=== PATIENT | male | born 1970 | race Caucasian/White ===

== ENCOUNTER 2016-08-12 04:05 | Inpatient (IN) | payer BC, MEDICARE ==
[2016-08-10 13:24] LABS: HEMOGLOBIN 13.2 g/dL (13.6-17.8)
[2016-08-10 13:25] LABS: HEMATOCRIT 39.7 % (40.0-51.0)
[2016-08-10 13:47] LABS: BUN (BLOOD UREA NITROGEN) 11 MG/DL (6-23); CALCIUM, SERUM 8.9 MG/DL (8.5-10.4); CHLORIDE, SERUM 104 MMOL/L (96-112); CO2 (CARBON DIOXIDE) 25 MMOL/L (24-34); CREATININE 1.32 MG/DL (0.70-1.30); GFR AFRICAN AMERICAN 75 ML/MIN (>=60); GFR NON AFRICAN AMERICAN 65 ML/MIN (>=60); GLUCOSE, SERUM 94 MG/DL (60-99); POTASSIUM, SERUM 3.1 MMOL/L (3.5-5.3); SODIUM, SERUM 138 MMOL/L (135-148)
--- NOTE | ~2016-08-12 | DS ---
Discharge Summary [facility] [address] [place]. [address] NAME: CHRISTINA BERTRAND : 72 STATUS : DIS IN PAT#: [id number] AGE: 46 ADM/REG DATE : 08/12/16 MR#: [id number] REPORT SERV DATE: 09/01/16 DICTATED BY: YANG COLLIER II DATE: 08/31/16 REPORT STATUS : Draft TRANSCRIBED BY: DIANA DATE: 08/31/16 Data Collection from hospitalization DISCHARGE DIAGNOSES: 1. 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 2. L4 pars fracture. 3. Right lower extremity radiculopathy. 4. Hypertension. 5. Tobacco use. 6. History of myocardial infarction. 7. Asthma. 8. Chronic pain. 9. Gastroesophageal reflux disease. 10.Peripheral vascular disease. 11.Rheumatoid arthritis. 12.Decreased kidney function. CONSULTATIONS: Wili Hardy M.D. PROCEDURES PERFORMED: 1. Anterior exposure of the lumbar spine on 08/12/2016. 2. Stage I (anterior); L4-L5 anterior interbody arthrodesis, application of prosthetic device at L4-L5, anterior instrumentation at L4-L5. Stage II (posterior); posterolateral arthrodesis at L4-L5, posterior nonsegmental instrumentation at L4-5, use of allograft substitute and bone morphogenic protein, use of stereotactic spinal imaging on 08/12/2016. PATHOLOGY: Lumbar spine repair - predominantly fragmented cartilage, no evidence was seen of an infectious or neoplastic process. MEDICATIONS: ProAir two puffs via inhaler every four hours as needed, Celexa 20 mg daily, Valium 5 mg every six hours as needed, Enbrel 50 mg subcutaneously weekly as instructed, Duragesic one patch topically every 72 hours, folic acid 1 mg daily, Neurontin 1600 mg twice a day, methotrexate three tablets weekly as instructed, Singulair 10 mg daily, MS Contin 30 mg every eight hours, Roxicodone 15 mg every four hours as needed, Protonix 40 mg daily, Klor-Con 20 mEq daily, Phenergan 12.5 mg every six hours as needed, Seroquel 75 mg at bedtime, Topamax 200 mg twice a day, and Desyrel 50 mg at bedtime. CONDITION AT DISCHARGE: Stable. DISPOSITION: The patient was discharged home on a regular diet with activities as instructed. He would follow up with me on 09/06/2016. HOSPITAL COURSE: This is a 46-year-old man who had been complaining of cervical-related symptoms. The symptoms are located in the lower back and he also complained of numbness and tingling in his feet. The patient said that he fell down a flight of steps two months prior to this admission. He was last seen in the office eight months prior to this admission. He had reported having dysphagia since his fall. He had been eating, but said "it feels tight Discharge Summary [facility] [address] [facility] [place]. [address] NAME: CHRISTINA BERTRAND : 72 STATUS : DIS IN PAT#: [id number] AGE: 46 ADM/REG DATE : 08/12/16 MR#: [id number] REPORT SERV DATE: 09/01/16 DICTATED BY: YANG COLLIER II DATE: 08/31/16 REPORT STATUS : Draft TRANSCRIBED BY: DIANA DATE: 08/31/16 and things stick." He had not been evaluated by his primary care physician or an emergency department. He described the severity of his symptoms as a 5 on a scale of 0-10. 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 He has right lower extremity radiculopathy. Treatment options were discussed and it was elected to proceed with surgical intervention. He was admitted to the hospital at this time for further evaluation and treatment. Upon admission, he was taken to the operating room where he underwent the above-mentioned procedure by myself and Dr. Wili Hardy. He tolerated this well, and there were no complications. On postop day #1, he was evaluated by Physical Therapy. He was passing flatus. His abdomen was benign. We advanced his diet. Respirations were nonlabored. We encouraged him to mobilize. On postop day #2, he continued to complain of the expected amount of abdominal pain postoperatively. He continued to progress. Discharge planning was performed. We encouraged him to mobilize. On 08/17/2016, he did have a bowel movement. He had persistent nausea. The patient said this had been an issue for several months. He was seeing GI as an outpatient. Discharge instructions were given. Due to his improved and stable condition, he was discharged home with the above-stated instructions. Information collected by: Krys Zapata I submit the above information as my discharge summary. SHAWN/DIANA Yang Collier II, M.D. / [id number] CC: Mk Allen II, M.D.
--- NOTE | ~2016-08-12 | OP ---
Record Of Operation [facility] [address] [place]. [address] NAME: ELZA,CHRISTINA OCONNOR : 72 STATUS : ADM IN [facility]#: [id number] AGE: 46 ADM/REG DATE : 08/12/16 MR#: [id number] REPORT SERV DATE: 08/13/16 DICTATED BY: YANG COLLIER II DATE: 08/13/16 REPORT STATUS : Draft TRANSCRIBED BY: MODL DATE: 08/13/16 DATE OF PROCEDURE: 08/12/2016 PREOPERATIVE DIAGNOSES: 1. 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 2. L4 pars fracture. 3. Right lower extremity radiculopathy. POSTOPERATIVE DIAGNOSES: 1. 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 2. L4 pars fracture. 3. Right lower extremity radiculopathy. PROCEDURES: Stage I (anterior). 1. L4-L5 anterior interbody arthrodesis. 2. Application of prosthetic device L4-L5. 3. Anterior instrumentation L4-L5. Stage II (posterior). 1. Posterolateral arthrodesis L4-L5. 2. Posterior nonsegmental instrumentation, L4-5. 3. Use of allograft substitute and bone morphogenic protein. 4. Use of stereotactic spinal imaging. SURGEON: Dr. Yang Collier (Dr. Hardy was the co-surgeon for the anterior stage I interbody arthrodesis). IV FLUIDS: 1800 mL LR. ESTIMATED BLOOD LOSS: 50 mL. DRAINS: No drains. COMPLICATIONS: No complications. ANTIBIOTIC: Preoperatively. IMPLANTS: Anterior, Globus; Alphatec, posterior. PREOPERATIVE HISTORY: This is a very friendly 46-year-old gentleman who has a complicated medical history including cardiac disease, but also has had a recurrence of back pain and leg pain. He has had a history of two laminectomies in the past. He now has facet instability. He also has a pars fracture on the right. This area appears to be hypermobile. He does have some instability seen on the lateral flexion-extension films, but no extreme spondylolisthesis is noted. However, it appears that the facet is essentially absent and not functioning normally especially on the right given the fracture. Record Of Operation [facility] [address] [place]. [address] NAME: ELZACHRISTINA : 72 STATUS : ADM IN PAT#: [id number] AGE: 46 ADM/REG DATE : 08/12/16 MR#: [id number] REPORT SERV DATE: 08/13/16 DICTATED BY: YANG COLLIER II DATE: 08/13/16 REPORT STATUS : Draft TRANSCRIBED BY: MODL DATE: 08/13/16 We discussed the risks and benefits. He does have a history of infection (urosepsis). We discussed the risk of infection with this particular surgery as well. We discussed the other risks and he wished to proceed. DESCRIPTION OF PROCEDURE: After informed consent was obtained, the patient was brought to the operating room at his request and general anesthesia achieved. He was placed in supine position. The abdomen was prepped and draped in a sterile fashion. Dr. Hardy performed anterior retroperitoneal exposure. Under loupe magnification and a head lamp, I did remove disk with the knife followed by use of the pituitary rongeurs, Kerrison rongeurs, and curettes for the diskectomy. Overall, the L4-L5 vertebral bodies were very unstable there was obvious abnormal macro motion noted at the disk level. The Perez elevator was able to abnormally cause migration in the vertebral bodies. The endplates were now prepared with the curettes and the high-speed bur. The punctate bleeding bone was identified on both endplates. The prosthetic device was then trialed and chosen and placed at L4-L5. This contained allograft substitute and bone morphogenic protein. The prosthetic device was well placed. Next, the anterior instrumentation was applied. This was a separate plate and screw construct. Two screws were placed into L4 and L5. Multiplanar imaging confirmed acceptable placement of the implants. The standard closure was now performed and standard dressings were applied, and the patient was turned to the prone position. The back was prepped and draped in a sterile fashion. The stereotactic spinal pin was placed into the left iliac crest followed by completion of the intraoperative CT scan. Stereotactic guidance was then used throughout the case. At this point, the minimally invasive incision was performed on the right. The stereotactic guidance was then used to place the pedicle screws into L4 and L5. A repeat CT scan confirmed acceptable placement of the implants followed by placement of the malathi. Final tightening was performed. At this point, the retractor was placed along with the Perez elevator. We were able to decorticate the transverse process of L4 and L5. The allograft substitute and bone morphogenic protein were then placed along the gutter. Standard closure was performed, and the patient was extubated and transferred to PACU in stable condition. TRISTEN/DIANA Yang Collier II, M.D. / [id number] CC: Record Of Operation [address] [address] NAME: CHRISTINA BERTRAND : 72 STATUS : ADM IN [facility]#: [id number] AGE: 46 ADM/REG DATE : 08/12/16 MR#: [id number] REPORT SERV DATE: 08/13/16 DICTATED BY: YANG COLLIER II DATE: 08/13/16 REPORT STATUS : Draft TRANSCRIBED BY: DIANA DATE: 08/13/16 Mk Allen II, M.D.
--- NOTE | ~2016-08-12 | OP ---
Record Of Operation [facility] [address] [place]. [address] NAME: CHRISTINA BERTRAND : 72 STATUS : ADM IN PAT#: [id number] AGE: 46 ADM/REG DATE : 08/12/16 MR#: [id number] REPORT SERV DATE: 08/12/16 DICTATED BY: WILI BUTLER II DATE: 08/12/16 REPORT STATUS : Draft TRANSCRIBED BY: MODL DATE: 08/12/16 DATE OF PROCEDURE: 08/12/2016 ATTENDING CO-SURGEON: Wili Butler M.D. SECOND ATTENDING CO-SURGEON: Long Collier M.D. PREOPERATIVE DIAGNOSIS: Severe degenerative disk disease, L4-L5. POSTOPERATIVE DIAGNOSIS: Severe degenerative disk disease, L4-L5. PROCEDURES: 1. Anterior exposure of the lumbar spine. 2. Anterior lumbar interbody fusion with instrumentation at L4-L5. ANESTHESIA: General. ESTIMATED BLOOD LOSS: 25 mL for my portion of the case. Please note, I am the co-surgeon of the case. I am dictating a portion of the case. The remaining portion is found in a note by Dr. Collier. DESCRIPTION OF PROCEDURE: The patient was taken to the operating room and placed in a supine position on the table. General anesthesia was achieved. Protective padding and a lumbar roll was placed. We then prepped and draped in a sterile fashion. I made an incision to the left of the umbilicus directly over L4-L5. The rectus sheath on the left side was then opened along the length of the incision and the rectus muscle was retracted laterally. We entered the preperitoneal space and bluntly dissected into the retroperitoneal space and swept the peritoneum, the ureter, and abdominal contents to the right to expose the aorta and iliac vessels. The segmental vessels at L4 and L5 were then identified and ligated with 2-0 silk suture. With continued dissection, we completely immobilized the vessels and exposed L4-L5 and marked this with fluoroscopy. A diskectomy with graft replacement and instrumentation was performed. Please see Dr. Collier's notes for details of this. Once x-ray confirmed adequate placement, we inspected the retroperitoneum. It was hemostatic. The ureter was intact. We removed the retractors and allowed the abdominal contents to return to their normal anatomic position. We then closed using interrupted Vicryl in a running PDS. We closed the skin with Monocryl. At the end of the procedure, the patient was stable. He had tolerated it well. He was transported to the recovery room in good condition. SAQIB/DIANA Wili Record Of Operation [address] [address] NAME: CHRISTINA BERTRAND : 72 STATUS : ADM IN PAT#: [id number] AGE: 46 ADM/REG DATE : 08/12/16 MR#: [id number] REPORT SERV DATE: 08/12/16 DICTATED BY: WILI BUTLER II DATE: 08/12/16 REPORT STATUS : Draft TRANSCRIBED BY: DIANA DATE: 08/12/16 Antony SALMON M.D. / [id number] CC: Long Collier II, M.D.
[~2016-08-12 04:05] MED LIST: ADVIL PO; ASAB PO; ATEN50 PO; CEFT5 PO; CELEXA20 PO; DIL4TAB PO; DURA100 TOP; ENBREL25 MG SC; ENBREL50 MG/M1 SC; ENBREL50 MG/ML SC; FESO4 PO; FOLIC PO; KLOR-CON M2020 MEQ PO; LIPITOR20 PO; LIPITOR40 PO; LOP25 PO; LORCET PLUS1 TAB PO; MOBIC15 MG PO; MTX2.5 PO; NEUR300 PO; NEUR600 PO; NEUR800 PO; NORCO1 TA1 PO; OXYCODONE; OXYCON10 PO; PERCOCET1 TA4 PO; PLAVIX PO; PRAVAC PO; PRIM50B PO; PROAIR HFA INH; PROTONIX PO; RAN500 PO; SEROQUEL XR150 MG PO; SEROQUEL25 PO; SEROQUEL50 MG PO; SINGULAIR1 PO; TOPAMAX100 PO; TOPAMAX200 MG PO; TRAZ50 PO; TREXALL7.5 MG PO; V2 PO; VENTOLIN HFA INH; VITC500 PO
[2016-08-13 06:31] LABS: BASOPHILS 0 %; EOSINOPHILS 0 %; HEMATOCRIT 35.4 % (40.0-51.0); HEMOGLOBIN 11.6 g/dL (13.6-17.8); IMMATURE GRANULOCYTES 0.2 %; IMMATURE GRANULOCYTES ABSOLUTE 0.02 10/3/uL (0.0-0.11); LYMPHOCYTES 4.3 %; LYMPHOCYTES ABSOLUTE 0.41 10/3/uL (0.67-4.30); MANUAL DIFF NO %; MEAN CORPUS HGB CONC 32.8 g/dL (32.0-36.0); MEAN CORPUSCULAR HEMOGLOB 33.2 pg (26.0-34.0); MEAN CORPUSCULAR VOLUME 101.4 fL (80-100); MEAN PLATELET VOLUME 9.6 fL (9.2-13.0); MONOCYTES ABSOLUTE 0.29 10/3/uL (0.21-1.20); NEUTROPHILS 92.5 %; NEUTROPHILS ABSOLUTE 8.83 10/3/uL (2.02-8.40); PLATELET COUNT 145 10/3/uL (150-400); RBC DISTRIBUTION WIDTH 16.1 % (12.0-16.0); RED CELL COUNT 3.49 10/6/uL (4.7-6.1); WHITE BLOOD CELLS 9.6 10/3/uL (4.5-10.5)
[2016-08-16 04:40] LABS: BASOPHILS 0.2 %; BASOPHILS ABSOLUTE 0.01 10/3/uL (0.0-0.16); EOSINOPHILS 1.7 %; HEMATOCRIT 31.3 % (40.0-51.0); HEMOGLOBIN 10.7 g/dL (13.6-17.8); IMMATURE GRANULOCYTES 0.5 %; IMMATURE GRANULOCYTES ABSOLUTE 0.03 10/3/uL (0.0-0.11); LYMPHOCYTES 16.7 %; LYMPHOCYTES ABSOLUTE 0.97 10/3/uL (0.67-4.30); MEAN CORPUS HGB CONC 34.2 g/dL (32.0-36.0); MEAN CORPUSCULAR HEMOGLOB 33.8 pg (26.0-34.0); MEAN CORPUSCULAR VOLUME 98.7 fL (80-100); MEAN PLATELET VOLUME 8.6 fL (9.2-13.0); MONOCYTES 14.1 %; MONOCYTES ABSOLUTE 0.82 10/3/uL (0.21-1.20); NEUTROPHILS 66.8 %; NEUTROPHILS ABSOLUTE 3.88 10/3/uL (2.02-8.40); PLATELET COUNT 130 10/3/uL (150-400); RBC DISTRIBUTION WIDTH 15.7 % (12.0-16.0); RED CELL COUNT 3.17 10/6/uL (4.7-6.1); WHITE BLOOD CELLS 5.8 10/3/uL (4.5-10.5)
[2016-08-16 04:41] LABS: MANUAL DIFF NO %
[2016-08-16 04:53] LABS: BUN (BLOOD UREA NITROGEN) 12 MG/DL (6-23); CALCIUM, SERUM 8.5 MG/DL (8.5-10.4); CHLORIDE, SERUM 106 MMOL/L (96-112); CO2 (CARBON DIOXIDE) 27 MMOL/L (24-34); GFR AFRICAN AMERICAN 119 ML/MIN (>=60); GFR NON AFRICAN AMERICAN 103 ML/MIN (>=60); GLUCOSE, SERUM 92 MG/DL (60-99); POTASSIUM, SERUM 3.2 MMOL/L (3.5-5.3); SODIUM, SERUM 140 MMOL/L (135-148)
[2016-08-17] MEDS ORDERED: MSCONTIN PO (11:56)
[2016-08-17] MEDS ORDERED: V5 PO (11:56)
[2016-08-17] MEDS ORDERED: PR12.5 PO (11:56)
[2016-08-17] MEDS ORDERED: ROXICODONE15 MG PO (11:57)
== END 2016-08-17 14:00 | disposition home or self-care (01) | DRG 454 ==
LOC: SDC/OF 04:05 → 3SO 12:20
PROVIDERS: Orthopaedic Surgery; Surgery
PROC: 0SG00A0 Fusion of Lumbar Vertebral Joint with Interbody Fusion Device, Anterior Approach, Anterior Column, Open Approach (ICD-10-PCS; principal; 2016-08-12 05:45)
PROC: 0SG0071 Fusion of Lumbar Vertebral Joint with Autologous Tissue Substitute, Posterior Approach, Posterior Column, Open Approach (ICD-10-PCS; 2016-08-12 05:45)
PROC: 4A11X4G Monitoring of Peripheral Nervous Electrical Activity, Intraoperative, External Approach (ICD-10-PCS; 2016-08-12 05:45)
DX: M51.16 Intervertebral disc disorders with radiculopathy, lumbar region (principal); F11.20 Opioid dependence, uncomplicated; M48.46XA Fatigue fracture of vertebra, lumbar region, initial encounter for fracture
CPT/HCPCS: 71010; 80048; 82962; 83735; 85014; 85018; 85025; 87641; 88304; 88311; 93005; 97116-GP; 97161-GP; A9270-GY; C1713; G8978-CJ-GP; G8979-CH-GP; J0690; J1170; J1644; J2250; J2405; J2550; J2710; J3010; J3370; J8610